=== PATIENT | female | born 1970 | race Caucasian/White ===

== ENCOUNTER 2018-12-28 13:43 | Emergency (ER) | payer MEDICAID, OTHER ==
[~2018-12-28] VITALS: Ht 162.6 cm; Wt 62.5 kg
[2018-12-28 13:52] VITALS: Ht 162.6 cm; Wt 62.5 kg
[2018-12-28] MEDS ORDERED: HYDROmorphONE 1 MG/ML SYG IV STA (15:49)
[2018-12-28] MEDS ORDERED: KETOROLAC 30 MG INJ IV STA (15:49)
[2018-12-28] MEDS ORDERED: ONDANSETRON 4 MG INJ IV STA (15:49)
[2018-12-28] MEDS ORDERED: METHYLPREDNISOLONE 125 MG INJ IV ONE (16:00)
[2018-12-28] MEDS ORDERED: IBUP800T48 PO (17:51)
[2018-12-28] MEDS ORDERED: HYDR-3980 PO (17:51)
[2018-12-28] MEDS ORDERED: METH500T PO (17:51)
--- NOTE | 2018-12-28 17:54 | ERD ---
ER Documentation Chief Complaint Chief Complaint L shoulder pain since 0800, L weak/ numb. No droop/ slurring LKWT 2230 HPI This is a 48-year-old female who states she woke up with pain in her left trapezius and only feels better if she raises her arm up in the air. If she lays her arm down she feels tingling and shooting burning pain down her arm into digits #3-4. No neck pain whatsoever and no headache. No symptoms in the face vision speech or leg. She says her trapezius on the left feels very tight and sore and hurts to move to touch and move. There is no worsening of pain when she moves her neck ROS All systems reviewed and are negative except as per history of present illness. Medications Home Meds Active Scripts Methocarbamol* (Robaxin*) 500 Mg Tab, 500 MG PO Q8, #20 TAB Prov:LEKKOS,APOSTOLOS A. DO 12/28/18 Ibuprofen* (Motrin*) 800 Mg Tab, 800 MG PO Q6H PRN for PAIN AND OR ELEVATED TEMP, #30 TAB Prov:LEKKOS,APOSTOLOS A. DO 12/28/18 Hydrocodone/Acetaminophen ([place] 10-325 Tablet) 1 Each Tablet, 1 TAB PO Q6H PRN for PAIN, #7 TAB Prov:LEKKOS,APOSTOLOS A. DO 12/28/18 Allergies Allergies: Coded Allergies: Shellfish (Verified Allergy, Mild, FACIAL SWELLING, 12/28/18) PMhx/Soc Medical and Surgical Hx: pt denies Medical Hx History of Surgery: Yes (CORNEAL TRANSPLANT, CERVICAL DISK ) Anesthesia Reaction: No Hx Neurological Disorder: No Hx Respiratory Disorders: No Hx Cardiac Disorders: No Hx Psychiatric Problems: No Hx Miscellaneous Medical Probl: No Hx Alcohol Use: No Hx Substance Use: No Smoking Status: Heavy tobacco smoker FmHx Family History: No coronary disease Physical Exam Vitals Vital Signs Date Temp Pulse Resp B/P (MAP) Pulse Ox O2 O2 Flow FiO2 Time Delivery Rate 12/28/18 84 18 133/77 99 Room Air 16:31 (95) 12/28/18 71 18 128/91 98 Room Air 15:19 (103) 12/28/18 98.7 99 26 135/89 95 13:52 (104) Physical Exam Const: Well-developed, well-nourished Head: Atraumatic, normocephalic Eyes: Normal Conjunctiva, PERRLA, EOMI, normal sclera, no nystagmus ENT: Normal External Ears, Nose and Mouth, moist mucus membranes. Neck: Full range of motion. No meningismus, no lymphadenopathy, tender trapezius to palpation with spasm, symptoms improved with arm above the head. Resp: Clear to auscultation bilaterally, no wheezing, rhonchi, rales Cardio: Regular rate and rhythm, no murmurs, S1 S2 present Abd: Soft, non tender x 4, non distended. Normal bowel sounds, no guarding or rebound, no pulsitile abdominal masses or bruits Skin: No petechiae or rashes, no ecchymosis , no maculopapular rash Back: No midline or flank tenderness Ext: No cyanosis, or edema, FROM x 4, normal inspection, neurovascularly intact x 4 Neur: Awake and alert, STR 5/5 x 4, sensation intact x 4, no focal findings, cerebellum intact Psych: Normal Mood and Affect Results 24 hrs Laboratory Tests Test 12/28/18 15:18 POC Beta HCG, Qualitative NEGATIVE Current Medications Medications Dose Sig/Maeve Start Time Status Last (Trade) Ordered Route PRN Stop Time Admin Dose Reason Admin 1 mg ONCE STAT 12/28/18 DC 12/28/18 Hydromorphone IV 15:49 12/28/18 16:23 HCl 15:52 (Dilaudid) Ondansetron 4 mg ONCE STAT 12/28/18 DC 12/28/18 HCl (Zofran IV 15:49 12/28/18 16:10 Inj) 15:52 125 mg ONCE ONCE 12/28/18 DC 12/28/18 Methylprednis IV 16:00 12/28/18 16:16 olone Sodium 16:01 Succinate (Solu-Medrol) Ketorolac 30 mg ONCE STAT 12/28/18 DC 12/28/18 Tromethamine IV 15:49 12/28/18 16:19 (Toradol) 15:52 Procedures/MDM After pain medication was given the patient feels much better she is her pain is a 0 which she has full movement of her arm without any difficulty she can hang it down with no pain either. Patient has a muscle spasm of cervical radiculopathy I suspect this peripheral nerve getting pinched in the trapezius. Will discharge home with Zheng Arias Departure Diagnosis: Primary Impression: Cervical radiculopathy Condition: Stable Patient Instructions: Radiculopathy, Cervical ROBERT MURPHY DO Dec 28, 2018 17:54
[2018-12-28 18:02] VITALS: BP 120/96; PULSE 74; RESP 18
== END 2018-12-28 18:05 | disposition home or self-care (01) ==
LOC: E/R 13:43
DX: M54.12 Radiculopathy, cervical region (principal); M54.2 Cervicalgia
CPT/HCPCS: 81025; 93005; 96374; 96375; J1170; J1885; J2405; J2930; Z7502; Z7610